=== PATIENT | male | born 1965 | race American Indian/Alaskan Native ===

== ENCOUNTER 2021-03-28 22:20 | Emergency (ER) | payer SELFPAY ==
[2021-03-29 01:57] LABS: Bacteria,Urine 1+ /HPF (Negative); Bilirubin,Urine NEG (Negative); Blood,Urine NEG (Negative); Color,Urine Straw (Yellow); Protein,Urine <15 mg/dL mg/dL (Negative); Urobilinogen,Urine < 2.0 mg/dL (<2.0)
--- NOTE | 2021-03-29 05:13 | Emergency Department Report ---
<SRI PARK - Last Filed: 03/29/21 10:02> ED General Adult HPI - General Chief complaint: Urogenital-Male Stated complaint: PAIN IN GROIN/POLYURIA/HYPERGLYCEMIC Time Seen by Provider: 03/29/21 05:03 - Related Data Previous Rx's Medication Instructions Recorded Last Taken Type metFORMIN [Glucophage] 500 mg PO BID #90 tablet 03/29/21 Unknown Rx Allergies Allergy/AdvReac Type Severity Reaction Status Date / Time No Known Allergies Allergy Unverified 03/29/21 00:31 ED Past Medical Hx - Medications Home Medications: Home Medications Medication Instructions Recorded Confirmed Last Taken Type metFORMIN [Glucophage] 500 mg PO BID #90 tablet 03/29/21 Unknown Rx ED Medical Decision Making - Lab Data Result diagrams: 03/29/21 06:07 03/29/21 06:07 - Radiology Data Radiology results: report reviewed [facility] [address] [place] [address] Ultrasound Report Signed Patient: KARINA MCNEILL MR#: [id number] 0 : 1965 Acct:[id number] Age/Sex: 56 / M ADM Date: 03/28/21 Loc: ED Attending Dr: Ordering Physician: SNAA GUERRIER Date of Service: 03/29/21 Procedure(s): US testicular doppler comp Accession Number(s): [id number] cc: SANA GUERRIER ULTRASOUND TESTICULAR DOPPLER COMPLETE HISTORY: Bilateral testicular pain for one week COMPARISON: None. TECHNIQUE: Grayscale, color and spectral Doppler images were obtained of the scrotum. FINDINGS: RIGHT: Right testicle: No significant abnormality. No mass. Right testicular size: 4.5 x 1.7 x 3.0 cm. Right epididymis: No significant abnormality. LEFT: Left testicle: No significant abnormality. No mass. Left testicular size: 4.0 x 1.4 x 2.6 cm. Left epididymis: No significant abnormality. Additional findings: Spectral Doppler waveforms demonstrate arterial flow b ilaterally. No torsion, calcifications or fluid. IMPRESSION: 1. No significant abnormality. Signer Name: Kevan Mcdonough Jr, MD Signed: 03/29/2021 8:29 AM Workstation Name: [id number] Transcribed By: TTR Dictated By: KEVAN MCDONOUGH JR, MD Electronically Authenticated By: KEVAN MCDONOUGH JR, MD Signed Date/Time: 03/29/21828 DD/ 6 TD/TT: Print Cancel ED Disposition Clinical Impression: New onset type 2 diabetes mellitus Disposition: DC-01 TO HOME OR SELFCARE Is pt being admited?: No Does the pt Need Aspirin: No Condition: Stable Instructions: Tips for Eating Away From Home If You Have Diabetes, Type 2 Diabetes Mellitus, Self Care, Adult, [id number], Diabetes Mellitus Type 2 in Adults (ED) Additional Instructions: Please start taking the Metformin. Please increase your water intake. Is very important you follow-up with a primary care provider in the next 5 to 7 days. Prescriptions: metFORMIN [Glucophage] 500 mg PO BID #90 tablet Referrals: TRACY GAONA MD [Primary Care Provider] - 3-5 Days [facility] [Provider Group] - 3-5 Days PAMELA GARNICA MD [Staff Physician] - 3-5 Days Forms: Work/School Release Form(ED) <ANNEMARIE SHORT - Last Filed: 03/29/21 16:38> ED General Adult HPI - General Source: patient Mode of arrival: Ambulatory Limitations: No Limitations - History of Present Illness Initial comments: 56-year-old male patient presents emergency department with complaints of frequent urination, increased thirst, testicular pain, and pain in his penis starting 1 week ago. No preceding fall, trauma, or injury. Testicular pain is bilateral. Patient states he is urinating often but also feels as though he is "straining to urinate." Patient has no known history of prostate issues or diabetes. Denies fever, chills, abdominal pain, nausea, vomiting, diarrhea, hematuria, incontinence. Denies all other complaints at this time. ED Review of Systems ROS: Stated complaint: PAIN IN GROIN/POLYURIA/HYPERGLYCEMIC Other details as noted in HPI Other: GENERAL: Negative for fever, chills, weight change, anorexia, fatigue. ENT: Negative for ear pain, difficulty hearing, sore throat, nasal congestion, epistaxis. CARDIOVASCULAR: Negative for chest pain, palpitations, lower extremity swelling. PULMONARY: Negative for cough, dyspnea, wheezing, orthopnea, cyanosis. GASTROINTESTINAL: Negative for abdominal pain, nausea, vomiting, diarrhea, constipation. GENITOURINARY: Positive for urinary frequency, penis pain, testicular pain. MUSCULOSKELETAL: Negative for joint pain, joint swelling, myalgias, back pain, neck pain. NEUROLOGICAL: Negative for headache, seizure, syncope, paresthesias, weakness. INTEGUMENTARY: Negative for erythema, rash, diaphoresis, laceration, ecchymosis. HEMATOLOGICAL: Negative for hemoptysis, hematemesis, hematochezia, hematuria. PSYCHIATRIC: Negative for hallucinations, suicidal ideation, homicidal ideation, anxiety, depression. ED Past Medical Hx - Past Medical History Previous Medical History?: No - Surgical History Past Surgical History?: Yes Additional Surgical History: hernia ED Physical Exam - General Limitations: No Limitations - Other Other exam information: General: Awake and alert. No acute distress. Head: Atraumatic, normocephalic. Eyes: EOMI. Pupils are equal and round. Normal sclera and conjunctiva. ENT: Oral mucosa is moist. Normal pharyngeal exam. Neck: Supple. No lymphadenopathy. Pulmonary: No respiratory distress. Clear to auscultation bilaterally. Cardiac: Regular rate and rhythm. Pulses are palpable and equal bilaterally. No lower extremity cyanosis or edema. Skin: Warm and dry. No rashes. Abdomen: Soft, non-tender, non-protuberant. No guarding, rigidity, or rebound. Bowel sounds are normal. No organomegaly or masses noted. 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 Normal external inspection. No evidence of inguinal hernia. Diffuse scrotal tenderness without edema. No testicular asymmetry. No blood or discharge at the urethral meatus. U ncircumcised. No rashes or lesions. Back: Normal alignment. No CVA tenderness. Extremities: Symmetrical. Full range of motion intact. Neurological: Alert and oriented, appropriately interactive, no focal deficits. Psych: Cooperative. Appropriate mood and affect. Speech is evenly metered. Thoughts are logically construed. ED Course Vital Signs 03/29/21 03/29/21 03/29/21 00:27 09:11 11:10 Temperature 97.6 F 98.6 F 98.6 F Pulse Rate 107 H 91 H 85 Respiratory 18 19 19 Rate Blood Pressure 148/97 Blood Pressure 132/81 131/88 [Left] O2 Sat by Pulse 96 99 100 Oximetry ED Medical Decision Making - Lab Data Result diagrams: 03/29/21 06:07 03/29/21 06:07 - Medical Decision Making Differential diagnosis including but not limited to: testicular torsion, prostatitis, epididymitis, orchitis, urinary tract infection, BPH, diabetes 07:00: Patient is stable, awaiting labs and imaging. Care of patient transferred to [facility] at shift change for further evaluation and final disposition pending remainder of diagnostic work-up. Critical care attestation.: If time is entered above; I have spent that time in minutes in the direct care of this critically ill patient, excluding procedure time.
[2021-03-29 06:31] LABS: Basophils # (Auto) 0.1 K/mm3 (0.0-0.1); Basophils % (Auto) 0.9 % (0.0-1.8); Eosinophils # (Auto) 0.1 K/mm3 (0.0-0.4); Eosinophils % (Auto) 1.2 % (0.0-4.3); Hematocrit 47.1 % (35.5-45.6); Hemoglobin 15.9 gm/dl (11.8-15.2); Lymphocytes % (Auto) 17.9 % (13.4-35.0); Mean Corpuscular HGB Conc 34 % (32-34); Mean Corpuscular Volume 87 fl (84-94); Monocytes % (Auto) 8.8 % (0.0-7.3); Platelet Count 180 K/mm3 (140-440); Red Blood Count 5.43 M/mm3 (3.65-5.03); Red Cell Distribution Width 13.5 % (13.2-15.2)
[2021-03-29 06:55] LABS: Alanine Aminotransferase 23 units/L (7-56); Albumin 4.4 g/dL (3.9-5); BUN/Creatinine Ratio 9; Blood Urea Nitrogen 8 mg/dL (9-20); Calcium 9.6 mg/dL (8.4-10.2); Hemolysis Index 6
--- NOTE | 2021-03-29 08:33 | Ultrasound Report ---
ULTRASOUND TESTICULAR DOPPLER COMPLETE HISTORY: Bilateral testicular pain for one week COMPARISON: None. TECHNIQUE: Grayscale, color and spectral Doppler images were obtained of the scrotum. FINDINGS: RIGHT: Right testicle: No significant abnormality. No mass. Right testicular size: 4.5 x 1.7 x 3.0 cm. Right epididymis: No significant abnormality. LEFT: Left testicle: No significant abnormality. No mass. Left testicular size: 4.0 x 1.4 x 2.6 cm. Left epididymis: No significant abnormality. Additional findings: Spectral Doppler waveforms demonstrate arterial flow bilaterally. No torsion, ca lcifications or fluid. IMPRESSION: 1. No significant abnormality. Signer Name: Kevan Mcdonough Jr, MD Signed: 03/29/2021 8:29 AM Workstation Name: [id number]
[2021-03-29 11:11] VITALS: BP 131/88
== END 2021-03-29 11:11 | disposition home or self-care (01) ==
LOC: ED 22:20
DX: E11.65 Type 2 diabetes mellitus with hyperglycemia (principal); Z79.899 Other long term (current) drug therapy
CPT/HCPCS: 36415; 80053; 81001; 82805; 82962; 83735; 85025; 93975